=== PATIENT | male | born 1985 | race Caucasian/White ===

== ENCOUNTER → 2017-05-10 | Outpatient (CLI) | payer OTHER ==
[2015-09-16 14:38] VITALS: BP 103/55
[~2017-05-10] MED LIST: LISD40CA3 PO; OMEP20CA9 PO; OXYC-327 PO
--- NOTE | 2017-05-10 15:39 | KCIC ---
Testicular ultrasound dated 05/10/2017. No comparison available. CLINICAL INDICATION: Testicular pain. FINDINGS: Right testicle measures 3.6 x 1.3 x 2.8 cm. Left testicle measures 3.8 x 2.1 x 2.8 cm. No focal testicular mass. Normal color Doppler flow and waveforms to both testicles. Epididymides are unremarkable. No significant hydrocele. There is a small left-sided varicocele. No significant scrotal wall thickening. IMPRESSION: 1. Normal sonographic appearance of the testicles. 2. Small left-sided varicocele. Electronically signed by: Erick Frey MD (05/10/2017 3:35 PM) [id number]
== END | disposition home or self-care (01) ==
LOC: KCIC US 12:24
PROVIDERS: ATTEND Physician Assistant Medical
DX: I86.1 Scrotal varices (principal); N50.812 Left testicular pain
CPT/HCPCS: 76870

== ENCOUNTER → 2019-02-05 | Outpatient (CLI) | payer OTHER ==
[2015-09-16 14:38] VITALS: BP 103/55
[~2019-02-05] MED LIST changes: +OMEP20CA10 PO; -OMEP20CA9 PO; -OXYC-327 PO; +OXYC1TAB19 PO
[2019-02-05 11:26] LABS: BASO % 1 % (0-3); EOS # 0.1 x10^3/uL (0.0-0.7); EOS % 2 % (0-3); HEMOGLOBIN 15.4 g/dL (13.0-17.5); LYMPH # 1.6 x10^3/uL (1.0-4.8); LYMPH % 30 % (24-48); MEAN CORPUSCULAR HEMOGLOBIN 30 pg (25-35); MEAN CORPUSCULAR HGB CONC 35 g/dL (31-37); MEAN CORPUSCULAR VOLUME 85 fL (79-100); MONO # 0.6 x10^3/uL (0.0-1.1); MONO % 12 % (0-9); NEUT # 2.9 x10^3uL (1.8-7.7); NEUT % 56 % (31-73); PLATELET COUNT 161 x10^3/uL (140-400); RED BLOOD COUNT 5.17 x10^6/uL (4.30-5.70); WHITE BLOOD COUNT 5.3 x10^3/uL (4.0-11.0)
[2019-02-05 11:44] LABS: ALBUMIN 4.1 g/dL (3.4-5.0); ALBUMIN/GLOBULIN RATIO 1.1 (1.0-1.7); CALCIUM 8.8 mg/dL (8.5-10.1); GFR 85.5; POTASSIUM 4.4 mmol/L (3.5-5.1); TOTAL BILIRUBIN 0.5 mg/dL (0.2-1.0); TOTAL PROTEIN 7.9 g/dL (6.4-8.2)
[2019-02-05 21:08] LABS: TESTOSTERONE TOTAL 265 ng/dL (264-916)
== END | disposition home or self-care (01) ==
LOC: LAB 10:45
PROVIDERS: ATTEND Physician Assistant Medical
DX: E29.1 Testicular hypofunction (principal)
CPT/HCPCS: 36415; 80053; 84153; 84403; 85025; G0103